=== PATIENT | female | born 1985 | race Caucasian/White ===

== ENCOUNTER 2021-04-20 12:42 | Emergency (ER) | payer OTHER ==
--- NOTE | 2021-04-20 13:03 | EDM.PDOC ---
ED HPI GENERAL MEDICAL PROBLEM - General Chief Complaint: Lower Extremity Injury/Pain Stated Complaint: SLIP AND FALL AT WORK Time Seen by Provider: 04/20/21 12:44 Source of Information: Reports: Patient History Limitations: Reports: No Limitations - History of Present Illness INITIAL COMMENTS - FREE TEXT/NARRATIVE: HISTORY AND PHYSICAL: History of present illness: Patient is a 36-year-old female who presents to the emergency room with complaints of left posterior knee pain. Prior to arrival she was at work and had slipped resulting in her left knee twisting and her putting all her weight on the extremity. She states she did not fall to the ground or hit it on anything. Since has had pain with weightbearing and ambulation. Denies hitting her head or having any loss of consciousness. She does have some mild right low muscular back pain from "twisting" while she was attempting to prevent her fall. Denies any other extremity involvement. Patient denies any fever, chills, headache, change in vision, syncope or near syncope. Denies any chest pain, back pain, shortness of breath or cough. Denies any abdominal pain, nausea, vomiting, diarrhea, constipation or dysuria. Has not noted any blood in urine or stool. Patient has been eating and drinking appropriately. Review of systems: As per history of present illness and below otherwise all systems reviewed and negative. Past medical history: As per history of present illness and as reviewed below otherwise noncontributory. Surgical history: As per history of present illness and as reviewed below otherwise noncontributory. Social history: See social history for further information Family history: As per history of present illness and as reviewed below otherwise noncontributory. Physical exam: General: Well developed and well nourished 36 year old female. Alert and orientated x 3. Nontoxic in appearance and in no acute distress. Vital signs are stable and have been reviewed by me. Nursing notes were reviewed. HEENT: Atraumatic, normocephalic, pupils equal and reactive bilaterally, negative for conjunctival pallor or scleral icterus, mucous membranes moist, trachea midline. No drooling or trismus noted. No meningeal signs. No hot potato voice noted. Lungs: Clear to auscultation bilaterally. No wheezes, rales, or rhonchi. Chest nontender. Normal work of breathing, no accessory muscles used. Heart: S1S2, regular rate and rhythm without overt murmur, gallops, or rubs. No JVD. No peripheral edema Abdomen: Soft, nondistended, nontender. Normoactive bowel sounds. Negative for masses or costovertebral tenderness. Pelvis: Stable nontender. C-spine/Back: No pinpoint vertebral tenderness upon palpation. No crepitus, step-offs or obvious deformities. Right mid lumbar muscular back tenderness. Patient is ambulatory into the emergency room without difficulty or deficit. Able to rock back on heels and walk on toes. Denies any urinary or fecal incontinence. Denies any numbness, tingling or saddle paresthesia. No concerns of serious infection, fracture or cord compression, or cauda equina syndrome. Deep tendon reflexes brisk bilaterally. Skin: Intact, warm, dry. No lesions or rashes noted. Hematologic: No petechiae or purpra. Mucosa appropriate color and normal nail bed color and refill. Extremities: She moves all extremities per self without difficulty or deficits, negative for cords or calf pain, pain with palpation to the posterior left knee. No obvious injury or soft tissue swelling noted. Strong pedal and pretibial pulse. +CMS. Good flexion and extension of the knee. No knee instability, negative drawer test. Neurovascular unremarkable. Neuro: Awake, alert, oriented. Cranial nerves II through XII unremarkable. Cerebellum unremarkable. Motor and sensory unremarkable throughout. Exam nonfocal. Psychiatric: Mood and affect are appropriate. Normal thought process. Answering questions appropriately. Notes: *This patient was seen and evaluated during the 2019 SARS-CoV-2 novel coronavirus pandemic period. Community viral transmission is ongoing at time of this encounter and the emergency department is operating under pandemic response procedures. Patient is a 36-year-old female who presents to the emergency room with complaints of left posterior knee pain after "catching myself from falling" while at work. She states she did not physically land on the ground although states her left leg twisted and she had put all her weight on it resulting in the injury. She denies any previous injury of the affected site. She is able to ambulate although weightbearing and ambulation causes pain. She denies any numbness, tingling or saddle paresthesias. Patient also has some right lumbar mid back pain. No bony tenderness, muscular in nature. We will get an x-ray of the knee. She has no concern for , currently on her menstrual period. X-ray shows an acute nondisplaced fracture of the tip of the right tibial spine. Sclerosis of the medial tibial plateau could be degenerative versus contusion. 1/2 cast fiberglass splint above the knee and crutches to be used to be nonweight bearing for right knee strain. To use until follow up with ort hopedics. Will send a referral and have patient follow up with next week. I have talked with the patient about today's findings, in addition to providing specific details for plan of care. Reassessment at the time of disposition demonstrates that the patient is in no acute distress. The patient is stable for discharge, counseling was provided and we discussed in great detail signs and symptoms that would prompt them to return to the Emergency Department. Medication, follow up and supportive care measures were reviewed and discussed. Voices understanding and is agreeable to plan of care. Denies any further questions or concerns at this time. Diagnostics: X-ray Therapeutics: 1/2 cast splint, Crutches Prescription: Samira (#20) Impression: Tibial fracture, left Muscular back strain Plan: 1. You were evaluated today on an emergent basis. Your x-ray shows an acute nondisplaced fracture of the tip of the right tibial spine. Rest, ice, elevate the extremity as able. I would like you to be nonweightbearing, use your crutches, and use the fiberglass splint until you follow up with orthopedics. 2. You can alternate Tylenol and ibuprofen as needed for pain and fever management. Winn for moderate to severe pain. This medication may cause drowsiness so do not take it while driving or needing to be functioning outside of the house. 3. We encourage you to follow up with orthopedics for re-evaluation and further care/management if you continue to have pain. 4. If your symptoms should worsen, new symptoms develop or any of the signs and symptoms we discussed should arise please return to the emergency room or call 911 (if needed). Definitive disposition and diagnosis as appropriate pending reevaluation and review of above. Left Knee Pain Score (Numeric/FACES): 8 - Related Data Allergies Allergy/AdvReac Type Severity Reaction Status Date / Time No Known Allergies Allergy Verified 04/20/21 12:58 Home Meds: Home Meds Hydrocodone/Acetaminophen [Hydrocodone-Acetamin 5-325 mg] 1 each PO Q4HR PRN #20 tablet 04/20/21 [Rx] Review of Systems - Review of Systems Review Of Systems: Comprehensive ROS is negative, except as noted in HPI. ED EXAM, GENERAL - Physical Exam Exam: See Below (See dictation) Course - Vital Signs Last Recorded V/S: Last Vital Signs Temp 97 F 04/20/21 12:58 Pulse 85 04/20/21 12:58 Resp 16 04/20/21 12:58 BP 169/74 H 04/20/21 12:58 Pulse Ox 99 04/20/21 12:58 - Orders/Labs/Meds Orders: Active Orders 24 hr Category Date Time Status DME for Discharge [COMM] Stat Oth 04/20/21 13:22 Ordered Departure - Departure Time of Disposition: 14:51 Disposition: Home, Self-Care 01 Clinical Impression: Spasm of muscle, back Tibia fracture Qualifiers: Encounter type: initial encounter Tibia location: spine Fracture type: closed Fracture alignment: nondisplaced Laterality: right Qualified Code(s): S82.114A - Nondisplaced fracture of right tibial spine, initial encounter for closed fracture - Discharge Information Prescriptions: Hydrocodone/Acetaminophen [Hydrocodone-Acetamin 5-325 mg] 1 each PO Q4HR PRN #20 tablet PRN Reason: Pain Instructions: Muscle Strain, [id number], Tibial Fracture, Adult, [id number] Referrals: PCP,None [Primary Care Provider] - Forms: ED Department Discharge Additional Instructions: The following information is given to patients seen in the emergency department who are being discharged to home. This information is to outline your options for follow-up care. We provide all patients seen in our emergency department with a follow-up referral. The need for follow-up, as well as the timing and circumstances, are variable depending upon the specifics of your emergency department visit. If you don't have a primary care physician on staff, we will provide you with a referral. We always advise you to contact your personal physician following an emergency department visit to inform them of the circumstance of the visit and for follow-up with them and/or the need for any referrals to a consulting specialist. The emergency department will also refer you to a specialist when appropriate. This referral assures that you have the opportunity for follow-up care with a specialist. All of these measure are taken in an effort to provide you with optimal care, which includes your follow-up. Under all circumstances we always encourage you to contact your private physician who remains a resource for coordinating your care. When calling for follow-up care, please make the office aware that this follow-up is from your recent emergency room visit. If for any reason you are refused follow-up, please contact the [facility] Emergency Department at and asked to speak to the emergency department charge nurse. [facility] - [facility] Professional Building [address] [facility], [address] [place] [address] Dr Mcghee, Orthopedist [facility] [address] [place] [address] Orthopedics at [facility] [address] [place] [address] [facility] [address] [place] [address] Thank you for choosing the [facility] emergency department in [place] for your medical needs today. It was a pleasure caring for you. Today you were seen in the emergency department for knee fracture and back pain. 1. You were evaluated today on an emergent basis. Your x-ray shows an acute nondisplaced fracture of the tip of the right tibial spine. Rest, ice, elevate the extremity as able. I would like you to be nonweightbearing, use your crutches, and use the fiberglass splint until you follow up with orthopedics. 2. You can alternate Tylenol and ibuprofen as needed for pain and fever management. Winn for moderate to severe pain. This medication may cause drowsiness so do not take it while driving or needing to be functioning outside of the house. 3. We encourage you to follow up with orthopedics for re-evaluation and further care/management if you continue to have pain. 4. If your symptoms should worsen, new symptoms develop or any of the signs and symptoms we discussed should arise please return to the emergency room or call 911 (if needed).. Sepsis Event Note (ED) - Focused Exam Vital Signs: Vital Signs Temp Pulse Resp BP Pulse Ox 04/20/21 12:58 97 F 85 16 169/74 H 99 - My Orders Last 24 Hours: My Active Orders 04/20/21 13:22 DME for Discharge [COMM] Stat - Assessment/Plan Last 24 Hours: My Active Orders 04/20/21 13:22 DME for Discharge [COMM] Stat
--- NOTE | 2021-04-20 14:40 | CR ---
Indication: Twisted knee, caught her fall. Technique: Left knee 3 views. Comparison: None. Findings: There is an acute nondisplaced fracture of the tip of the right tibial spine. No other fracture identified. Sclerosis of the medial tibial plateau could be degenerative versus contusion. Joint spaces are well preserved. The patella is normally aligned. No knee joint effusion. Soft tissues are unremarkable. Impression: 1. Acute nondisplaced fracture of the tip of the right tibial spine. 2. Sclerosis of the medial tibial plateau could be degenerative versus contusion. Dictated by Kari Park MD @ 04/20/2021 2:40:[address] Kari Park @ Apr 20 2021 2:40PM
== END 2021-04-20 15:38 | disposition home or self-care (01) ==
LOC: MW.ED 12:42
DX: S82.114A Nondisplaced fracture of right tibial spine, initial encounter for closed fracture (principal); M62.830 Muscle spasm of back; X50.1XXA Overexertion from prolonged static or awkward postures, initial encounter
CPT/HCPCS: 29505; 73562-26-LT; 73562-LT; 99283-25